=== PATIENT | male | born 1965 | race Caucasian/White ===

== ENCOUNTER 2024-08-22 15:16 | Outpatient (CLI) | payer OTHER, SELFPAY ==
--- NOTE | ~2024-08-22 | XR_ITS ---
EXAM: XR shoulder RT min 2V DATE: 08/22/2024 15:47 HISTORY: R07.81 - Pleurodynia . COMPARISON: None available. FINDINGS: Normal mineralization. Minimally displaced fractures of the right third lateral (seen best in the Grashey view) and right fifth anterolateral ribs. No lytic or blastic lesion. Joint spaces ar e maintained. No erosion or periosteal change. Soft tissues within normal limits. IMPRESSION: No acute osseous finding in the right shoulder. If pain persists, consider MR of the shoulder. Minimally displaced fractures of the right third lateral and right fifth anterolateral ribs. Reviewed, dictated and finalized at location K. IMPRESSION: No acute osseous finding in the right shoulder. If pain persists, consider MR o f the shoulder. Minimally displaced fractures of the right third lateral and right fifth jessy lateral ribs.
--- NOTE | ~2024-08-22 | XR_ITS ---
EXAMINATION: XR chest 2V 08/22/2024 15:47 INDICATION: Pleurodynia PROCEDURE: 2 view chest COMPARISON: No prior studies for comparison. FINDINGS: The lungs are clear. The cardiomediastinal silhouette is within normal limits. There are no pleural effusions. There is no pneumothorax suspected. Small right pleural effusion. IMPRESSION: 1: NO ACUTE CARDIOPULMONARY DISEASE. 2: Small right pleural effusion. Reviewed, dictated and finalized at location B.
--- NOTE | ~2024-08-22 | XR_ITS ---
EXAM: XR thoracic spine 2V DATE: 08/22/2024 15:47 HISTORY: R07.81 - Pleurodynia . COMPARISON: None available. FINDINGS: Scoliosis. Thoracic vertebral body alignment intact. Vertebral body heights preserved. Mild multilevel degenerative disc disease. No traumatic malalignment or fracture. Visualized lung parench yma is clear. 3 mm retrolisthesis likely at L1-2, although accurate level numbering is difficult with views provided. IMPRESSION: No definite fracture or traumatic malalignment detected in the thoracic spine. 3 mm retro listhesis, likely at L1-2, typically seen with degenerative changes although traumatic injury is not excluded. If there is thoracolumbar/upper lumbar pain, consider CT or MRI for further evaluation. Reviewed, dictated and finalized at location K. IMPRESSION: No definite fracture or traumatic malalignment detected in the thor acic spine. 3 mm retrolisthesis, likely at L1-2, typically seen with degenerati ve changes although traumatic injury is not excluded. If there is thoracolumbar /upper lumbar pain, consider CT or MRI for further evaluation.
--- OUTSIDE RECORDS SUMMARY | 2024-08-22 15:30 | XMS_ITS | Referral Summary ---
Author Organization [facility] Physician Office Building [address] [place] [phone] Care Team Providers Care Work Counselor Name Role Phone Tayla Banks MD Primary Care Provider Encounters Date Type Department Care Team Description 08/22/2024 11:00 AM CDT Clinical Support [facility] Pediatric Genetics [address] [facility] Medicine 6th Floor [address] [place] [phone] Spinocerebellar ataxia (HCC) 08/20/2024 3:00 PM CDT Office Visit [facility] Movement Disorders [address] [facility] 7th Floor [place] [phone] Libertad Snider MD PhD Spinocerebellar ataxia (HCC) (Primary Dx) from Last 3 Months Allergies No known active allergies Medications tamsulosin (FLOMAX) 0.4 mg extended release capsule Take 1 capsule (0.4 mg total) by mouth daily 08/20/2024 Active NIFEdipine CC 60 mg 24 hr tablet Take 1 tablet (60 mg total) by mouth daily 07/22/2024 Active rosuvastatin (CRESTOR) 5 mg tablet Take 1 tablet (5 mg total) by mouth nightly at bedtime 07/22/2024 Active Active Problems Problem Noted Date Diagnosed Date 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 He does not have a genetic diagnosis; he and his are interested in this prospect if they can afford this; he is awaiting his appointment with genetics here. He has gait imbalance with frequent falls and would benefit from PT, he has previously refused to pursue this, will refer when he is amenable. He has mild chronic dysphagia but this is not any worse than prior; would continue to monitor and would maintain a low threshold to refer to ST with any further worsening of symptoms. Recommendations: F/u with Genetics as per schedule. 2. Consider PT. 3. Consider ST with further worsening of dysphagia. 5. Continue daily stretching, exercises and maintain fall precautions. I have established and will maintain a relationship with this patient to longitudinally manage their chronic neurological movement disorders. 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 He does not have a genetic diagnosis; he and his are interested in this prospect if they can afford this; will refer to genetics. He has gait imbalance with frequent falls and would benefit from PT but he wants to hold off on it at this time. He has some chronic dysphagia and would maintain a low threshold to refer to ST with any further worsening of symptoms. He has subjective and objective evidence of cognitive impairment (MoCA: 21 on 03/11/22); will check reversible labs. Recommendations: Refer to Genetics. 2. Check TSH, B12, Vit E. 3. Consider PT. 4. Consider ST with any further worsening of dysphagia. 5. Continue daily stretching, exercises and maintain fall precautions. I have established and will maintain a relationship with this patient to longitudinally manage their chronic neurological movement disorders. Assessment & Plan (03/11/2022 2:01 PM DRIED YEAST SUPERVISOR): Mr. Linn presented for a follow up. He had more near falls and falls to the ground since his last visit. He had not done PT and stated that he could not due to his job schedule. He did not uses any devices. He also continued to have some dysarthria and it was getting harder for others to understand him. He was asked to repeat his statements often. He is considering going on disability as it was getting harder for him to work. His hand dexterity was good. Recommendations: 1. Consider PT. May use APDA YouTube channel exercises as tolerated 2. Consider a cane 3. Follow up as planned and sooner if needed 4. Fall precaution Assessment & Plan (03/15/2021 5:58 PM DRIED YEAST SUPERVISOR): ASSESSMENT - 56 y.o. 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 He has a family history of similar symptoms. - Motor symptoms: No change in his experience of symptoms or on hs examination. The KERI score today was 12.5 in Mar 2021, 13 in Jan 2020, 12 in Dec 2018. Although his balance is prominently impaired, he continues not to fall and does not want to use a cane or walker at this time. He does not want to attend PT due to his job's schedule. - Pain in feet: no benefit from gabapentin but the problem has not been an issu recently. - Falls: no falls PLAN (phrased as addressed to the patient): - As we discussed, your examination findings are very similar to last time - Your ataxia is expected to gradually progress, but based on your visits here so far the progression is very slow. - Continue being careful with your balance. - As I mentioned, one option now is to refer you to Medical Genetics to see if a diagnosis can be made for your specific condition. However, you prefer to wait on this. - If you fall, contact my office and I will consider referring you for physical therapy. This encounter's total csrt-xj-rpug time was greater than 30 minutes. I spent more than 50% of this time in counseling and/or coordination of care as documented in the note. The patient visit started at 1628 and ended at 1701. Greater than 50% of the visit was spent on counseling and coordinating care. Patient was counseled on prognosis of cerebellar ataxia. Assessment & Plan (01/09/2020 12:21 PM DRIED YEAST SUPERVISOR): ASSESSMENT - 55 y.o. man with cerebellar ataxia for likely 6 years that began in 2014 at age 48 with intermittent diplopia that was later accompanied by balance problems. He has a family history of similar symptoms. - Motor symptoms: subjectively stable, and similar on exam to a year ago. The DELVIS score today was 13 in Jan 2020, 12 in Dec 2018. He is managing not to fall and does not want to use a cane or walker at this time, and cannot attend PT due to his job's schedule. Given that he is not falling, it is reasonable to wait before starting PT or using a walker. - Pain in feet: may be RLS or neuropathic pain. Will star gabapentin which may also help the back pain. - Falls: no falls PLAN (phrased as addressed to the patient): - For your pain in back and feet, start gabapentin 300 mg capsules: 1 cap in AM for 3 days; then 1 cap 2x/day for 3 dys; then 1 cap 3x/day - Look out for drowsiness. - Contact my office if you fall and I will recommend using a 4-wheel walker. This encounter's total lmyk-vy-tojg time was 25 minutes. I spent more than 50% of this time in counseling and/or coordination of care as documented in the note. The patient visit started at 1156 and ended at 1222. Greater than 50% of the visit was spent on counseling and coordinating care. Patient was counseled on rationale for starting gabapentin. Assessment & Plan (12/28/2018 2:13 PM DRIED YEAST SUPERVISOR): - 53 y.o. man with a 2-3 year history of progressive balance problems on a background of 5 years of intermittent diplopia, with symptoms progressing to the point that he is falling every few weeks. He has a family history of probable ataxia in his mother and twin brother. - The examination revealed moderate cerebellar ataxia manifesting as mild dysarthria, moderate limb dysmetria, and moderate gait ataxia. he did not have additional abmorlaities like parkinsonism, upper motor neuron signs, major cognitive problems, involuntary movements, or neuropathy. The KERI scale score was 12. - I reviewed outside records from Dr. Vlad Brenner (4 pages) - Results reviewed: Brain MRI 08/14/18 (report reviewed): atrophic changes in cerebellum and midbrain. Age uncertain - I agree with Dr. 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 It is not possible based on the clinical presentation to [employer] which of the more than 30 specific SCA syndrome is responsible, though the group most commonly associated with pure cerebellar ataxia like SCA6 are the most likely candidates. Genetic testing is not affordable and not covered by insurance and so this is not an option. - Falls: PT for gait and balance. NEUROPSYCHOLOGICAL EVALUATION: INTERPRETATION Normal performance on MMSE; Moderately impaired performance on MoCA. No evidence of depression on GDS; No evidence of depression on HADS. No evidence of anxiety on HADS. No evidence of daytime drowsiness on Sturtevant scale. No evidence of REM Behavior Disorder (RBD) on Stiasny-Kolster scale. These scores establish a baseline for potential future reference and do not require a change in current plan. PLAN (phrased as addressed to the patient): - As we discussed, your condition is a coordination problem that affects your eyes, your speech, your hands, and your legs. The cause is cerebellar ataxia, a condition that is caused by abnormal function of the cerebellum which is the brain's coordination center. Your condition is most likely a genetic form that runs in your family. The name is spinocerebellar ataxia. - I recommend physical therapy for gait and balance to help reduce your risk of falling (referral given). - I will print for you information about the local ataxia support group and the National Ataxia Foundation. - I will send some blood tests (paraneoplastic panel, vitamin E level) to exclude other possible causes of ataxia. - Contact my office in 2 months to confirm that the blood tests were completed and that I checked the results. 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 Not on file Not on file Not on file Last Filed Vital Signs Vital Sign Reading Time Taken Comments Blood Pressure 130/75 08/22/2024 10:56 AM CDT Pulse 74 08/22/2024 10:56 AM CDT Temperature 36.5 C (97.7 F) 03/11/2022 12:23 PM DRIED YEAST SUPERVISOR Respiratory Rate 18 09/04/2018 1:41 PM CDT Oxygen Saturation - - Inhaled Oxygen Concentration - - Weight 65.7 kg (144 lb 12.8 oz) 025 10:56 AM CDT Height 167.6 cm (5' 6) 08/22/2024 10:5 6 AM CDT Body Mass Index 23.37 08/22/2024 10:56 AM CDT Plan of Treatment Not on file Insurance [facility] CHOICE PLUS AETNA SIG [id number] Care Teams Work Counselor Relationship Specialty Start Date End Date Tayla Banks MD [address] [facility] [address] [place] [address] PCP - General Family Medicine 08/13/18
--- OUTSIDE RECORDS SUMMARY | 2024-08-22 15:30 | XMS_ITS | Encounter Summary ---
Author Organization [facility] Address [address] [place] [address] Phone Care Team Providers Care Consumer Education Specialist Name Role Phone Tayla Banks MD Primary Care Provider Encounter Details Date Type Department Care Team (Latest Contact Info) Description 01/14/2019 Orders Only [facility] MOVEMENT Scanning, Provider Social History Tobacco Use Types Packs/Day Years Used Date Smoking Tobacco: Never Smokeless Tobacco: Never Alcohol Use Standard Drinks/Week Comments Not Currently [...] file Not on file Not on file documented as of this encounter Plan of Treatment Not on file documented as of this encounter Procedures Procedure Name Priority Date/Time Associated Diagnosis Comments SCAN - LABS 01/14/2019 documented in this encounter Results * SCAN - LABS (01/14/2019) us Provider Scanning Edited Result - Final documented in this encounter Visit Diagnoses Not on filedocumented in this encounter Care Teams Consumer Education Specialist Relationship Specialty Start Date End Date Tayla Banks MD [address] [place] [address] PCP - General Family Medicine 08/13/18 documented as of this encounter
--- OUTSIDE RECORDS SUMMARY | 2024-08-22 15:30 | XMS_ITS | Clinical Summary ---
Author Organization [facility] Physician Office Building [address] [place] [phone] Care Team Providers Care Materials Management Supervisor Name Role Phone Tayla Banks MD Primary Care Provider Allergies No known active allergies Medications tamsulosin [...] disorders. Assessment & Plan (03/11/2022 2:01 PM BLENDING MACHINE FEEDER): Mr. Linn presented for a follow up. [...] precaution Assessment & Plan (03/15/2021 5:58 PM BLENDING MACHINE FEEDER): ASSESSMENT - 56 y.o. man with cerebellar [...] you for physical therapy. This encounter's total mmwn-eb-ilhn time was greater than 30 minutes. I spent more than 50% of this time in counseling and/or coordination of care as documented in the note. The patient visit started at 1628 and ended at 1701. Greater than 50% of the visit was spent on counseling and coordinating care. Patient was counseled on prognosis of cerebellar ataxia. Assessment & Plan (01/09/2020 12:21 PM BLENDING MACHINE FEEDER): ASSESSMENT - 55 y.o. man with cerebellar ataxia for likely 6 years that began in 2013 at age [...] using a 4-wheel walker. This encounter's total ipbs-vn-fmmo time was 25 minutes. I spent more than 50% of this time in counseling and/or coordination of care as documented in the note. The patient visit started at 1156 and ended at 1222. Greater than 50% of the visit was spent on counseling and coordinating care. Patient was counseled on rationale for starting gabapentin. Assessment & Plan (12/28/2018 2:13 PM BLENDING MACHINE FEEDER): - 53 y.o. man with a 2-3 [...] HADS. No evidence of daytime drowsiness on Dorchester scale. No evidence of REM Behavior Disorder [...] completed and that I checked the results. Encounters Date Type Department Care Team Description 08/22/2024 11:00 AM CDT Clinical Support [facility] Pediatric Genetics [address] [place] [address] 6th [place] [address] [place] [address] Spinocerebellar ataxia (HCC) 08/20/2024 3:00 PM CDT Office Visit [facility] Movement Disorders [address] [place] [address] 7th [place] [address] Libertad Snider MD PhD Spinocerebellar ataxia (HCC) (Primary Dx) from Last 3 Months Family History Medical History Relation Name Comments Spinocerebellar ataxia (HCC) Brother Heart attack Father No Known Problems Maternal Grandfather Balance problem Maternal Grandmother Ataxia Mother Cancer Mother No Known Problems Mother's Brother 2 Aniceto No Known Problems Paternal Grandfather No Known Problems Paternal Grandmother No Known Problems Sister Relation Name Status Comments Brother Alive Father (Age 52) Maternal Grandfather (Age 80s) Maternal Grandmother (Age 80s) Mother (Age 70s) Mother's Brother 1 Leandro Alive Mother's Brother 2 Aniceto Alive Paternal Grandfather Paternal Grandmother Sister Alive Social History Tobacco Use Types Packs/Day Years [...] file Not on file Not on file Obstetrics History Last Filed Vital Signs Vital Sign Reading Time Taken Comments Blood Pressure 130/75 08/22/2024 10:56 AM CDT Pulse 74 08/22/2024 10:56 AM CDT Temperature 36.5 C (97.7 F) 03/11/2022 12:23 PM BLENDING MACHINE FEEDER Respiratory Rate 18 09/04/2018 1:41 PM CDT Oxygen Saturation - - Inhaled Oxygen Concentration - - Weight 65.7 kg (144 lb 12.8 oz) 025 10:56 AM CDT Height 167.6 cm (5' 6) 08/22/2024 10:5 6 AM CDT Body Mass Index 23.37 08/22/2024 10:56 AM CDT Plan of Treatment Health Maintenance Due Date Last Done Comments Colon Cancer Screening-Colonoscopy 1963 Hepatitis C Screening 1965 Prostate Cancer Screening-PSA 1963 DTaP/Tdap/Td Vaccine (1 - Tdap) 1974 Hepatitis B Screening 1981 Regular Well Visit/Exam 18-64 1981 Zoster Vaccine (1 of 2) 2013 Depression Screening 03/11/2023 03/11/2022 Covid-19 Vaccine (3 - 2023-2 5 season) 2023 10/31/2020, 10/04/2020 Influenza Vaccine (#1) 2024 3, 02/28/2012 Pneumococcal vaccine <65 Aged Out No longer eligible based on patient's age to complete this topic Insurance [facility] CHOICE PLUS AETNA SIG [id number] Care Teams Materials Management Supervisor Relationship Specialty Start Date End Date Tayla Banks MD [address] [facility] [address] [place] [address] PCP - General Family Medicine 08/13/18
--- OUTSIDE RECORDS SUMMARY | 2024-08-22 15:30 | XMS_ITS | Encounter Summary ---
Author Organization [facility] Address [address] [place] [address] Phone Care Team Providers Care Solid Waste Engineer Name Role Phone Tayla Banks MD Primary Care Provider Reason for Visit * Reason Comments Genetic Evaluation * Consultation (Routine) - Authorized Specialty Diagnoses / Procedures Referred By Ramon deal Referred To Contact Genetics / Pediatric Genetics Diagnoses Spinocerebellar ataxia (HCC) Libertad Snider MD PhD [address] [place] [address] Phone: tel: fax: [facility] (All Locations) Referral ID Status Reason Start Date Expiration Date Visits Requested Visits Authorized [id number] Authorized Specialty Services Required 07/26/2024 08/25/2025 4 4 Encounter Details Date Type Department Care Team (Latest Contact Info) Description 08/22/2024 11:00 AM CDT Clinical Support [facility] Pediatric Genetics [address] [facility] Medicine 6th [place] [address] [place] [address] Spinocerebellar ataxia (HCC) Social History Tobacco Use Types Packs/Day Years [...] on file documented as of this encounter Last Filed Vital Signs Vital Sign Reading Time Taken Comments Blood Pressure 130/75 08/22/2024 10:56 AM CDT Pulse 74 08/22/2024 10:56 AM CDT Temperature - - Respiratory Rate - - Oxygen Saturation - - Inhaled Oxygen Concentration - - Weight 65.7 kg (144 lb 12.8 oz) 025 10:56 AM CDT Height 167.6 cm (5' 6) 08/22/2024 10:5 6 AM CDT Body Mass Index 23.37 08/22/2024 10:56 AM CDT documented in this encounter Plan of Treatment Not on file documented as of this encounter Visit Diagnoses Diagnosis Spinocerebellar ataxia (HCC) Other spinocerebellar diseases documented in this encounter Orders Outpatient Referral Count Last Ordered Date Fir st Ordered Date AMB REFERRAL TO PEDIATRIC GENETICS 1 2024 documented in this encounter Care Teams Solid Waste Engineer Relationship Specialty Start Date End Date Tayla Banks MD [address] [facility] [address] [facility] [address] [place] [address] PCP - General Family Medicine 08/13/18 documented as of this encounter
== END 2024-08-22 15:17 | disposition home or self-care (01) ==
PROVIDERS: PCP Family Medicine
DX: R07.81 Pleurodynia (principal); J90 Pleural effusion, not elsewhere classified; M25.511 Pain in right shoulder
CPT/HCPCS: 71046; 72070; 73030

== ENCOUNTER 2024-08-23 14:22 | Outpatient (CLI) | payer OTHER, SELFPAY ==
--- NOTE | ~2024-08-23 | CT_ITS ---
EXAMINATION: CT thoracic lumbar wo con DATE: 08/23/2024 14:49 INDICATION: W19.XXXA - Unspecified fall, initial encounter . TECHNIQUE: Computed tomography (CT) of the thoracic and lumbar spine was performed without intravenou s contrast. Automated exposure control and iterative reconstruction technique were employed. The dose -length product was 501.17 mGy-cm. COMPARISON: X-ray T-spine FINDINGS: THORACIC SPINE: Mild scoliosis. 2 mm anterolisthesis at C7-T1. Trace 1-2 mm anterolisthesis at T11-12. Remaining vert ebral bodies aligned. Vertebral body heights preserved. Mild multilevel degenerative disc disease. No traumatic malalignment or fracture. Visualized lung parenchyma is clear. Atherosclerotic calcificati ons. Coronary artery calcification. LUMBAR SPINE: 5 nonrib-bearing lumbar-type vertebral bodies. Pedicles intact. 3 mm retrolisthesis at L1-2. 1-2 mm r etrolisthesis at L2-3. 3 mm anterolisthesis at L3-4. Remaining vertebral bodies aligned. Moderate deg enerative disc disease at L1-2. Mild disc space narrowing at the remaining lumbar levels. Mild multil evel facet arthropathy. Vertebral body heights preserved. IMPRESSION: Multilevel grade 1 listheses in the thoracic and lumbar spine, presumably on a degenerative basis. No definite fracture or traumatic malalignment detected in the thoracic or lumbar spine. No severe central canal or neural foraminal narrowing Reviewed, dictated and finalized at location K. IMPRESSION: Multilevel grade 1 listheses in the thoracic and lumbar spine, presumably on a degenerative basis. No definite fracture or traumatic malalignment detected in the thoracic or lumb ar spine. No severe central canal or neural foraminal narrowing
--- OUTSIDE RECORDS SUMMARY | 2024-08-23 14:27 | XMS_ITS | Encounter Summary ---
Author Organization [facility] Address [address] [place] [address] Phone Care Team Providers Care Food Photographer Name Role Phone Tayla Banks MD Primary Care Provider Reason for Visit * Reason Comments Genetic Evaluation * Consultation (Routine) - Authorized Specialty Diagnoses / Procedures Referred By Ramon deal Referred To Contact Genetics / Pediatric Genetics Diagnoses Spinocerebellar ataxia (HCC) Libertad Snider MD PhD [address] [place] [address] Phone: tel: fax: [facility] (All Locations) Referral ID Status Reason Start Date Expiration Date Visits Requested Visits Authorized [id number] Authorized Specialty Services Required 07/26/2024 08/25/2025 4 4 Encounter Details Date Type Department Care Team (Latest Contact Info) Description 08/22/2024 11:00 AM CDT Clinical Support [facility] Pediatric Genetics [address] [facility] Medicine 6th [place] [address] [place] [address] Spinocerebellar ataxia (HCC) Social History Tobacco Use [...] 2024 documented in this encounter Care Teams Food Photographer Relationship Specialty Start Date End Date Tayla Banks MD [address] [facility] [address] [facility] [address] [place] [address] PCP - General Family Medicine 08/13/18 documented as of this encounter
--- OUTSIDE RECORDS SUMMARY | 2024-08-23 14:27 | XMS_ITS | Encounter Summary ---
Author Organization [facility] Address [address] [place] [address] Phone Care Team Providers Care Green Building Materials Distributor Name Role Phone Tayla Banks MD Primary [...] on filedocumented in this encounter Care Teams Green Building Materials Distributor Relationship Specialty Start Date End Date Tayla Banks MD [address] [place] [address] PCP - General Family Medicine 08/13/18 documented as of this encounter
--- OUTSIDE RECORDS SUMMARY | 2024-08-23 14:27 | XMS_ITS | Clinical Summary ---
Author Organization [facility] [address] [place] [id number] Care Team Providers Care Apartment Maintenance Worker Name Role Phone Tayla Banks MD Primary [...] disorders. Assessment & Plan (03/11/2022 2:01 PM DENTAL PRACTITIONER): Mr. Linn presented for a follow up. [...] precaution Assessment & Plan (03/15/2021 5:58 PM DENTAL PRACTITIONER): ASSESSMENT - 56 y.o. man with cerebellar [...] you for physical therapy. This encounter's total avha-lh-ciph time was greater than 30 minutes. I spent more than 50% of this time in counseling and/or coordination of care as documented in the note. The patient visit started at 1628 and ended at 1701. Greater than 50% of the visit was spent on counseling and coordinating care. Patient was counseled on prognosis of cerebellar ataxia. Assessment & Plan (01/09/2020 12:21 PM DENTAL PRACTITIONER): ASSESSMENT - 55 y.o. man with cerebellar [...] using a 4-wheel walker. This encounter's total qafj-wq-cdwd time was 25 minutes. I spent more than 50% of this time in counseling and/or coordination of care as documented in the note. The patient visit started at 1156 and ended at 1222. Greater than 50% of the visit was spent on counseling and coordinating care. Patient was counseled on rationale for starting gabapentin. Assessment & Plan (12/28/2018 2:13 PM DENTAL PRACTITIONER): - 53 y.o. man with a 2-3 [...] HADS. No evidence of daytime drowsiness on [place] scale. 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 3:00 PM CDT Office Visit [facility] Movement Disorders [address] [place] [address] [address] [place] [address] Libretad Snider MD PhD Spinocerebellar ataxia (HCC) (Primary [...] 36.5 C (97.7 F) 03/11/2022 12:23 PM DENTAL PRACTITIONER Respiratory Rate 18 09/04/2018 1:41 PM CDT [...] patient's age to complete this topic Insurance [facility] CHOICE PLUS [employer] SIG [id number] Care Teams Apartment Maintenance Worker Relationship Specialty Start Date End Date Tayla Banks MD [address] [facility] [address] [place] [address] PCP - General Family Medicine 08/13/18
--- OUTSIDE RECORDS SUMMARY | 2024-08-23 14:27 | XMS_ITS | Referral Summary ---
Author Organization [facility] [address] [place] [phone] Care Team Providers Care Analyst Competitive Intelligence Name Role Phone Tayla Banks MD Primary Care Provider Encounters Date Type Department Care Team Description 08/22/2024 11:00 AM CDT Clinical Support [facility] Pediatric Genetics [address] [facility] Medicine 6th [address] [place] [id number] Spinocerebellar ataxia (HCC) 08/20/2024 3:00 PM CDT Office Visit [facility] Movement Disorders [address] [facility] 7th Floor [place] [phone] Libertad Snider MD PhD Spinocerebellar ataxia (HCC) [...] disorders. Assessment & Plan (03/11/2022 2:01 PM ENGINEERING MATHEMATICIAN): Mr. Linn presented for a follow up. [...] precaution Assessment & Plan (03/15/2021 5:58 PM ENGINEERING MATHEMATICIAN): ASSESSMENT - 56 y.o. man with cerebellar [...] you for physical therapy. This encounter's total wgke-dc-tvdr time was greater than 30 minutes. I spent more than 50% of this time in counseling and/or coordination of care as documented in the note. The patient visit started at 1628 and ended at 1701. Greater than 50% of the visit was spent on counseling and coordinating care. Patient was counseled on prognosis of cerebellar ataxia. Assessment & Plan (01/09/2020 12:21 PM ENGINEERING MATHEMATICIAN): ASSESSMENT - 55 y.o. man with cerebellar [...] using a 4-wheel walker. This encounter's total qawa-ih-xtkg time was 25 minutes. I spent more than 50% of this time in counseling and/or coordination of care as documented in the note. The patient visit started at 1156 and ended at 1222. Greater than 50% of the visit was spent on counseling and coordinating care. Patient was counseled on rationale for starting gabapentin. Assessment & Plan (12/28/2018 2:13 PM ENGINEERING MATHEMATICIAN): - 53 y.o. man with a 2-3 [...] HADS. No evidence of daytime drowsiness on [place] scale. No evidence of REM Behavior Disorder [...] 36.5 C (97.7 F) 03/11/2022 12:23 PM ENGINEERING MATHEMATICIAN Respiratory Rate 18 09/04/2018 1:41 PM CDT Oxygen Saturation - - Inhaled Oxygen Concentration - - Weight 65.7 kg (144 lb 12.8 oz) 025 10:56 AM CDT Height 167.6 cm (5' 6) 08/22/2024 10:5 6 AM CDT Body Mass Index 23.37 08/22/2024 10:56 AM CDT Plan of Treatment Not on file Insurance [facility] CHOICE PLUS [facility] H[facility]/PPO Address: [address] [address] [place] [address] [employer] SIG [id number] Care Teams Analyst Competitive Intelligence Relationship Specialty Start Date End Date Tayla Banks MD [address] [facility] [address] [place] [address] PCP - General Family Medicine 08/13/18
== END 2024-08-23 14:23 | disposition home or self-care (01) ==
PROVIDERS: PCP Family Medicine
DX: M54.50 Low back pain, unspecified (principal); M54.6 Pain in thoracic spine; R93.7 Abnormal findings on diagnostic imaging of other parts of musculoskeletal system; M43.06 Spondylolysis, lumbar region; M43.04 Spondylolysis, thoracic region
CPT/HCPCS: 72128; 72131